=== PATIENT | female | born 1965 | race Hispanic/Latino ===

== ENCOUNTER 2018-12-27 00:20 | Emergency (ER) | payer OTHER ==
[2018-12-27] MEDS ORDERED: DEXAMETHASONE SOD PHOSPHATE 10MG/ML 1ML VIAL ONE (01:12)
[2018-12-27] MEDS ORDERED: KETOROLAC TROMETHAMINE 60 MG/2 ML VIAL ONE (01:12)
[2018-12-27] MEDS ORDERED: DIAZEPAM 5 MG TABLET ONE (01:12)
== END 2018-12-27 02:03 | disposition home or self-care (01) ==
LOC: EDH 00:20
DX: M54.12 Radiculopathy, cervical region (principal); I10 Essential (primary) hypertension
CPT/HCPCS: 96372 ×2; 99284; J1100; J1885